=== PATIENT | male | born 1940 | race Caucasian/White ===

== ENCOUNTER 2018-04-12 22:19 | Emergency (ER) | payer MEDICARE, OTHER ==
--- NOTE | 2018-04-12 22:27 | ED Physician Documentation ---
Dyspnea - HISTORIAN Historian: patient, spouse - [facility] Chief Complaint: Dyspnea Onset: days ago (1) Duration: continues in ED Initiating Event: upper respiratory illness Severity: moderate Exacerbated By: nothing Associated Symptoms: other (While coughing, he said it made his head and his chest hurt.). denies: chills, fever, sweating Further Comments: yes (Patient had a L lung lobectomy 12 years ago for lung cancer. He has terrible allergies also. Feels phlegm in throat and is worried he has pneumonia. He has been unable to "catch his breath" for a day. Does not use nebulizer or inhalers.) - ROS CONST: no problems - PAST HX Lung Disease: COPD, other (lung cancer - s/p lobectomy and radiation) Surgeries/Procedures: appendectomy, other (R parotidectomy) Allergies/Adverse Reactions: Allergies Allergy/AdvReac Type Severity Reaction Status Date / Time No Known Allergies Allergy Verified 04/12/18 22:49 Home Medications: Ambulatory Orders Medication Instructions Recorded Glyburide 5 mg PO DAILY 07/27/14 Lovastatin 20 mg PO D 07/27/14 Metformin HCl [GLUCOPHAGE] 1,000 mg PO BID 07/27/14 Pioglitazone HCl [Actos] 45 mg PO D 07/27/14 Fluticasone Propionate [Flonase] 1 spray NS DAILY 05/14/16 Acetaminophen [Tylenol] 325 - 650 mg PO Q6H PRN #0 tablet 05/17/16 Albuterol Sulfate [Proair Hfa] 8.5 gm IH Q4H PRN #1 hfa.aer.ad 04/13/18 Amoxicillin/Potassium Clav 1 each PO BID #20 tablet 04/13/18 [Augmentin 875-125 Tablet] - SOCIAL HX Smoking History: quit greater than 1 year Alcohol Use: none Drug Use: none - FAMILY HX Family History: none - VITAL SIGNS Vital Signs: Vital Signs Temp Pulse Resp BP Pulse Ox 135/79 05/17/16 10:20 - REVIEWED ASSESSMENTS Nursing Assessment Reviewed: Yes Vitals Reviewed: Yes Progress - Progress Progress: Duo neb given - wheezing resolved. Patient able to bring up white/yellow sputum. Solumedrol 125 mg IV given. - EKG/XRAY/CT XRAY: chest Xray Comments: L pneumonectomy. R normal. - Additional EKG/XRAY/Consults EKG #2: RBBB ED Results Lab/Radiology - Lab Results Lab Results: RBBB - noted in H&P in 2016 Dyspnea Physical Exam - EXAM General Appearance: no acute distress, alert EENT: eye inspection normal, ENT inspection normal, pharynx normal, no signs of dehydration Respiratory: no resp. distress, speaks full sentences, wheezes CVS: reg. rate & rhythm, no murmur Abdomen: non-tender Neuro/Psych: oriented x3 Discharge Clincal Impression: Upper respiratory infection Referrals: Fatoumata Luther FNP [Primary Care Provider] - 2 Days Disposition: 01 HOME, SELF-CARE Decision to Admit: NO Decision Time: 00:28
[2018-04-12] MEDS ORDERED: IPRATROPIUM/ALBUTEROL SULFATE 3 ML AMPUL.NEB NEB ONE (22:53)
[2018-04-12 23:07] LABS: eGFR (Non-African) 52
[2018-04-12] MEDS ORDERED: methylPREDNISolone SOD SUCC 125 MG/2 ML VIAL IVP ONE (23:15)
[2018-04-13] MEDS ORDERED: AMOXICILLIN/POT 875/125 1 EACH PO ONE (00:22)
[2018-04-13 00:56] VITALS: BP 133/76
--- NOTE | 2018-04-13 06:45 | Diagnostic Imaging Report ---
GILSON GAN [facility] [address] [facility] [address] [address] Report Submission Date: Apr 12, 2018 11:15:40 PM CDT Patient Study Name: JOSIANE OLEA Date: Apr 12, 2018 10:48:25 PM CDT Modality Type: DX Gender: M Description: CHEST : 42 Institution: [facility] Physician: GILSON GAN Pa and lateral chest Clinical history :short of breath Comparison: None Technique pa and lateral upright Findings: A left pneumonectomy has been performed. Atelectasis is present the right lung base. 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 Mediastinal shift to the left is present. There is no pleural effusion. Thoracic spondylosis is present. X. Impression: Left pneumonectomy right lung compensatory emphysema Atelectasis of indeterminate age in the right lung base Electronically signed on Apr 12, 2018 11:15:40 PM CDT by: Nathan FOX
== END 2018-04-13 00:50 | disposition home or self-care (01) ==
LOC: ED 22:19
DX: J06.9 Acute upper respiratory infection, unspecified (principal)
CPT/HCPCS: 71046; 80053; 82550; 82553; 83880; 84484; 85025; 93005; J2930; 94640; 96374; 99284; S1016